=== PATIENT | male | born 1990 | race Caucasian/White ===

== ENCOUNTER 2024-04-18 06:25 | Emergency (ER) | payer BC, MEDICAID ==
[2024-04-18 07:19] VITALS: BP 123/77; PULSE 100
[2024-04-18 07:20] LABS: BASOPHILS PERCENT AUTO 0.2 % (0.2-1.2); EOSINOPHILS PERCENT AUTO 0.5 % (0.0-4.0); HEMATOCRIT 38.8 % (40.0-52.0); HEMOGLOBIN 14.1 g/dL (14.0-18.0); LYMPHOCYTES ABSOLUTE AUTO 0.2 x10^3/uL (1.0-4.8); MEAN CORPUSCULAR HEMOGLOBIN 30.9 pg (26.0-32.0); MEAN CORPUSCULAR HGB CONC 36.3 g/dL (32.0-36.0); MEAN CORPUSCULAR VOLUME 84.9 fL (78.0-93.0); MONOCYTES ABSOLUTE AUTO 0.1 x10^3/uL (0.0-0.8); MONOCYTES PERCENT AUTO 1.6 % (2.0-11.0); NEUTROPHILS ABSOLUTE AUTO 6.1 x10^3/uL (1.8-7.7); NEUTROPHILS PERCENT AUTO 94.9 % (50.0-80.0); PLATELET COUNT,PLT 156 x10^3/uL (130-400); RED BLOOD CELL COUNT 4.57 x10^6/uL (4.5-6.0); WHITE BLOOD CELL COUNT,WBC 6.4 x10^3/uL (4.0-10.0)
[2024-04-18] MEDS: Ondansetron 4 MG/2 ML SDV IVPUSH ONE (07:22)
[2024-04-18] MEDS: HYDROmorphone 0.5 MG/0.5 ML Syringe IVPUSH ONE (07:24)
[2024-04-18 07:34] LABS: LYMPHOCYTES PERCENT AUTO 2.8 % (25.0-50.0)
[2024-04-18 07:39] LABS: A/G RATIO 1.44; ALBUMIN 3.9 g/dL (3.4-5.0); BILIRUBIN TOTAL 1.2 mg/dL (0.2-1.0); CALCIUM 9.2 mg/dL (8.5-10.1); CREATININE 1.3 mg/dL (0.70-1.30); EST CRCL DRUG DOSING (CG) 83.22 mL/min; MAGNESIUM 1.4 mg/dL (1.8-2.4); POTASSIUM,K 3.6 mmol/L (3.5-5.1); PROTEIN TOTAL,TP 6.6 g/dL (6.4-8.2)
[2024-04-18 07:40] LABS: ANION GAP 19.6 mmol/L (5-15)
[2024-04-18] MEDS: Magnesium Oxide 400 MG Tab PO ONE (08:09)
[2024-04-18] MEDS: LORazepam 2 MG/ML SDV IVPUSH ONE (08:09)
== END 2024-04-18 08:20 | disposition home or self-care (01) ==
LOC: VM.ED 06:25
DX: M54.6 Pain in thoracic spine (principal); Z91.030 Bee allergy status; Z88.8 Allergy status to other drugs, medicaments and biological substances
CPT/HCPCS: 80053; 83735; 85025; 87428-QW; 93005; 93010; 96374; 96375; 99284; 99285-25; A9270-GY; J2060; J2405

== ENCOUNTER 2024-06-15 19:30 | Emergency (ER) | payer SELFPAY ==
[2024-06-15] MEDS: Sodium Chloride 0.9% 1,000 ML IV ONE ×2 (20:10→20:50)
[2024-06-15 20:16] LABS: BASOPHILS PERCENT AUTO 0.2 % (0.2-1.2); EOSINOPHILS PERCENT AUTO 0.2 % (0.0-4.0); HEMATOCRIT 37.6 % (40.0-52.0); HEMOGLOBIN 13.3 g/dL (14.0-18.0); IMMATURE GRAN ABSOLUTE AUTO 0.01 x10^3/uL (0.00-0.07); LYMPHOCYTES ABSOLUTE AUTO 0.2 x10^3/uL (1.0-4.8); MEAN CORPUSCULAR HEMOGLOBIN 30.6 pg (26.0-32.0); MEAN CORPUSCULAR HGB CONC 35.4 g/dL (32.0-36.0); MEAN CORPUSCULAR VOLUME 86.4 fL (78.0-93.0); MONOCYTES ABSOLUTE AUTO 0.1 x10^3/uL (0.0-0.8); MONOCYTES PERCENT AUTO 1.6 % (2.0-11.0); NEUTROPHILS PERCENT AUTO 93.8 % (50.0-80.0); PLATELET COUNT,PLT 156 x10^3/uL (130-400); RED BLOOD CELL COUNT 4.35 x10^6/uL (4.5-6.0); WHITE BLOOD CELL COUNT,WBC 4.3 x10^3/uL (4.0-10.0)
[2024-06-15] MEDS: Ondansetron 4 MG/2 ML SDV IVPUSH ONE (20:18)
[2024-06-15] MEDS: Acetaminophen 500 MG Tab PO ONE (20:18)
[2024-06-15] MEDS: HYDROmorphone 1 MG/ML Syringe IVPUSH ONE (20:20)
[2024-06-15 20:35] LABS: A/G RATIO 1.43; ALANINE AMINOTRANSFERASE,ALT 37 U/L (16-63); ALKALINE PHOSPHATASE 97 U/L (46-116); ASPARTATE AMNIOTRANSFERASE,AST 41 U/L (15-37); BILIRUBIN TOTAL 1.4 mg/dL (0.2-1.0); BLOOD UREA NITROGEN,BUN 21 mg/dL (7-18); CALCIUM 9.2 mg/dL (8.5-10.1); CARBON DIOXIDE,CO2 26 mmol/L (21-32); CHLORIDE,CL 101 mmol/L (98-107); CREATININE 1.4 mg/dL (0.70-1.30); GLUCOSE RANDOM 98 mg/dL (70-99); LIPASE 35 U/L (19-71); MAGNESIUM 1.6 mg/dL (1.8-2.4); POTASSIUM,K 4.1 mmol/L (3.5-5.1); PROTEIN TOTAL,TP 6.8 g/dL (6.4-8.2); SODIUM,NA 135 mmol/L (136-145)
[2024-06-15 20:41] LABS: ANION GAP 12.1 mmol/L (5-15); ESTIMATED GFR 68 mL/min (>=60)
[2024-06-15] MEDS: Iopamidol 612 MG/ML 100 ML Bottle IVPUSH ONE (21:13)
[2024-06-15 22:00] LABS: APPEARANCE,URINE CLEAR (CLEAR); BILIRUBIN,URINE NEGATIVE (NEGATIVE); COLOR,URINE DARK YELLOW (YELLOW); GLUCOSE,URINE NEGATIVE (NEGATIVE); KETONES,URINE NEGATIVE (NEGATIVE); LEUKOCYTE ESTERASE,URINE NEGATIVE (NEGATIVE); NITRITE,URINE NEGATIVE (NEGATIVE); OCCULT BLOOD,URINE NEGATIVE (NEGATIVE); PH,URINE 8.5 (5.0-8.0); PROTEIN,URINE NEGATIVE (NEGATIVE)
[2024-06-15] MEDS: Piperacillin/Tazobactam 4.5 GM in Sodium Chloride 0.9% 100 ML IV ONE (22:00)
[2024-06-15] MEDS: Magnesium Citrate Solution 296 ML Bottle PO ONE (22:41)
[2024-06-16 01:02] VITALS: BP 104/52; PULSE 95
== END 2024-06-15 22:37 | disposition home or self-care (01) ==
LOC: VM.ED 19:30
DX: R10.84 Generalized abdominal pain (principal); Z88.8 Allergy status to other drugs, medicaments and biological substances; Z91.030 Bee allergy status
CPT/HCPCS: 36415; 74177; 80053; 81003; 83605; 83690; 83735; 84484; 85025; 96361; 96365; 96375; 99284; 99284-25; A9270-GY; J1171; J2405; J2543; J7030; Q9967

== ENCOUNTER 2024-08-18 13:24 | Emergency (ER) | payer SELFPAY ==
[2024-08-18] MEDS ORDERED: Take Home: Acetaminophen/oxyCODONE 325-5 MG, 5 Tab Pack PO ONE (14:05)
[2024-08-18] MEDS ORDERED: Ketorolac 30 MG/ML SDV IM ONE (14:06)
[2024-08-18] MEDS ORDERED: Orphenadrine 60 MG/2 ML Inj IM ONE (14:06)
[2024-08-18 14:22] VITALS: BP 126/76; PULSE 90
== END 2024-08-18 14:17 | disposition home or self-care (01) ==
LOC: VM.ED 13:24
DX: S60.452A Superficial foreign body of right middle finger, initial encounter (principal); F17.210 Nicotine dependence, cigarettes, uncomplicated; Z91.030 Bee allergy status; Z79.899 Other long term (current) drug therapy; W45.8XXA Other foreign body or object entering through skin, initial encounter; Y93.89 Activity, other specified
CPT/HCPCS: 10120; 99283-25

== ENCOUNTER 2024-12-17 12:15 | Emergency (ER) | payer MEDICAID | END 2024-12-17 12:30 | disposition left against medical advice (07) | LOC: VM.ED 12:15 | DX: Z53.21 Procedure and treatment not carried out due to patient leaving prior to being seen by health care provider (principal) ==